=== PATIENT | female | born 1940 | race Caucasian/White ===

== ENCOUNTER 2016-06-15 09:11 | Inpatient (IN) | payer MEDICARE ==
[2016-06-15] MEDS ORDERED: Activated Charcoal/Sorbitol 25 GM/120 ML TUBE ONE (09:26)
[2016-06-15] MEDS ORDERED: Acetaminophen 325 MG TAB ONE (09:26)
[2016-06-15 09:52] LABS: #Basophils 0.1 thou/uL (0.0-0.2); #Eosinphils 0.1 thou/uL (0.0-0.7); #Lymphocytes 1.1 thou/uL (1.20-3.40); #Monocytes 0.4 thou/uL (0.11-0.59); #Neutrophils 12.2 thou/uL (1.40-6.50); %Basophils 0.6 % (0.0-1.0); %Eosinophils 0.8 % (0.0-10.0); %Monocytes 3.1 % (0.0-10.0); %Neutrophils 87.5 % (42.0-75.0); Hemoglobin 12.8 g/dL (12.0-16.0); Mean Corpuscular HGB CONC 32.5 g/dL (32.0-36.0); Mean Corpuscular Hemoglobin 30.7 pg (27.0-31.0); Mean Corpuscular Volume 94.4 fl (81.0-99.0); Mean Platelet Volume 7.5 fL (7.4-10.4); Platelet Count 201 thou/uL (130-400); Red Blood Cell (RBC) Count 4.18 mill/uL (4.20-5.40); White Blood Cell (WBC) Count 13.9 thou/uL (4.8-10.8)
[2016-06-15 10:11] LABS: ALT (SGPT) 20 U/L (0-55); AST (SGOT) 26 U/L (5-34); Albumin 3.7 g/dL (3.4-4.8); Alkaline Phosphatase 61 U/L (40-150); Anion Gap 17 mmol/L (10-20); BUN (Urea Nitrogen) 15 mg/dL (9.8-20.1); Bilirubin, Total 0.3 mg/dL (0.2-1.2); Calc. Creatinine Clearance 0 mL/min (70-130); Calcium 9.2 mg/dL (7.8-10.44); Chloride 99 mmol/L (98-107); Estimated GFR-MDRD 70; Globulin 2.6 g/dL (2.4-3.5); Glucose 108 mg/dL (83-110); Potassium 3.8 mmol/L (3.5-5.1); Protein, Total 6.3 g/dL (5.8-8.1); Sodium 139 mmol/L (136-145)
[2016-06-15 10:13] LABS: CKMB 2.9 ng/mL (0-6.6); Troponin I 0.015 ng/mL (< 0.028)
[2016-06-15 10:20] LABS: Carbon Dioxide 27 mmol/L (23-31)
[2016-06-15 10:45] LABS: Bilirubin Negative (Negative); Blood, Urine Trace (Negative); Clarity Clear (Clear); Glucose, Urine (Dipstick) Negative (Negative); Leukocyte Negative (Negative); Nitrite Negative (Negative); Protein, Urine (Dipstick) Negative (Neg-Trace); Urobilinogen 0.2 mg/dL (0.2-1.0)
[2016-06-15 10:52] LABS: Bacteria/HPF None Seen HPF (None Seen); Crystals/HPF None Seen HPF (Negative); Hyaline Casts/LPF NONE SEEN LPF (0-3 Hyaline); Other Casts/LPF None Seen LPF (0-3 Hyaline); Oval Fat Bodies/HPF None Seen HPF (None Seen); RBC/HPF 0-3 HPF (0-3); Renal Epithelial None Seen HPF (0-3); Sperm/HPF None Seen HPF (None Seen); Squamous Epithelial None Seen HPF (0-3); Transitional Epithelial NONE SEEN HPF (0-3); Trichomonas/HPF None Seen HPF (None Seen); WBC/HPF None Seen HPF (0-3); Yeast-All Forms None Seen HPF (None Seen)
[2016-06-15] MEDS ORDERED: HYDROcodone/Acetaminophen 10/325 mg Tablet ONE (11:41)
[2016-06-15] MEDS ORDERED: Ketorolac Tromethamine 30 MG/ML VIAL ONE (11:41)
--- NOTE | 2016-06-15 12:08 | CT ---
CT OF THE BRAIN WITHOUT CONTRAST: Date: 06/15/16 Comparison made with the 07/19/08 study. FINDINGS: There is motion artifact and also some artifact from bone and metal. This degrades the images. Never theless, no intracranial bleeding, mass, or gross finding of stroke was found. Small strokes could b e easily missed. The ventricular sizes are appropriate for the degree of atrophy present. IMPRESSION: Lower sensitivity study showing no definite acute findings. POS: HOME
[2016-06-15] MEDS ORDERED: Acetaminophen 325 MG TAB PO PRN (14:17)
[2016-06-15] MEDS: Sodium Chloride 0.9% 1,000 ML IV SCH ×2 (14:30→23:15)
[2016-06-15] MEDS ORDERED: MORPHINE SULFATE 30 MG PO PRN (14:37)
[2016-06-15] MEDS ORDERED: LIDOCAINE TOP PRN (14:37)
[2016-06-15] MEDS ORDERED: Calcium Carbonate 500 MG ChewTAB PO PRN (14:37)
[2016-06-15] MEDS ORDERED: Polyethylene Glycol 3350 17 GM Packet PO PRN (14:40)
[2016-06-15] MEDS ORDERED: LIDOCAINE 5% TOP SCH (15:00)
[2016-06-15] MEDS: Albuterol Sulfate 2.5 mg/3 ml Neb NEB SCH ×3 (16:14→23:15)
[2016-06-15] MEDS: HYDROcodone/Acetaminophen 10/325 mg Tablet PO PRN (18:45)
[2016-06-15] MEDS: Enoxaparin Sodium 30 MG/0.3 ML SYRINGE SC SCH (18:52)
--- NOTE | 2016-06-15 20:15 | RAD ---
PORTABLE CHEST: 06/15/16 An AP portable film at 0955 is compared with a 11/29/14 study. The patient is turned to the side whic h is going to accentuate the lung markings on one side versus the other. The heart size is normal. There is no congestive change or pleural effusion. It is hazier in the lef t lung than the right, particularly the lower lobe, though to some extent this is due to the patient being rotated. Nevertheless, I cannot exclude an early infiltrate here. A convexity seen on the rig ht side of the thoracic spine near the diaphragm is almost certainly her known hiatal hernia. IMPRESSION: Rotated study suggesting some left basilar haziness. I cannot exclude an infiltrate there, but a fol lowup better centered film would be helpful. Code T POS: HOME
[2016-06-15] MEDS ORDERED: TRAZODONE HCL 150 MG PO SCH (21:00)
[2016-06-15] MEDS ORDERED: PROPYLENE GLYCOL EA EYE SCH (21:00)
[2016-06-15] MEDS ORDERED: PEG EA EYE SCH (21:00)
[2016-06-15] MEDS ORDERED: Non-Formulary Item 1 EACH (Zolpidem Tartrate [Zolpidem Tartrate] 10 MG) PO SCH (21:00)
[2016-06-15] MEDS ORDERED: [UNRECOGNIZED DRUG - OTHER] EA EYE SCH (21:00)
[2016-06-15] MEDS ORDERED: Polyethylene Glycol OPTH DROP 15 ML BOT EA EYE SCH (21:00)
[2016-06-15] MEDS ORDERED: LOTEPREDNOL ETABONATE EA EYE SCH (21:00)
[2016-06-15] MEDS: Zolpidem Tartrate 5 MG TAB PO SCH (21:42)
[2016-06-15] MEDS: traZODone HCl 50 MG TAB PO SCH (21:42)
[2016-06-15] MEDS: Gabapentin 300 MG CAP PO SCH (21:43)
[2016-06-15] MEDS: MORPHINE 30 MG PO SCH (21:45)
[2016-06-15] MEDS: LOTEMAX 0.5% EA EYE SCH (21:46)
--- NOTE | 2016-06-15 22:26 | HP ---
DATE OF ADMISSION: 06/15/2016 CHIEF COMPLAINT: Altered mental status and cough. HISTORY OF PRESENT ILLNESS: 76-year-old female presented to [facility] via EMS this morning secondary to altered mental state noted by her . The patient had a notable change in her behavior and was less conversational at home with a decline in her intake as well per her . She was transferred to the Emergency Department and evaluated with CT of the brain showing no definite acute findings. However, chest x-ray findings were concerning for a left-sided pneumonia. The patient denies having any weakness to her extremities or speech deficits. She does report to have a productive cough for the last several days. She did not feel to be febrile at home, but upon evaluation in the Emergency Department, she had a temperature of 103. She has not taken any medications at home up to this point for her symptoms. Her primary care provider is Dr. Marion, who she has seen as recently as a few weeks ago. She states she did get a flu and pneumonia shot this last fall; her reports that she has had both pneumonia shots. The patient has felt that her intake was at her baseline; however, this differs from what her stated. As far as her output she has a history of constipation with the last bowel movement a couple of days ago; she normally takes milk of Magnesia for this. She normally ambulates with the assistance of a cane. The patient was provided intravenous fluids in the emergency department and started on Levaquin IV and her mental status has continued to improve over this time up to her admission to the floor. She will be admitted to continue antibiotics for pneumonia, IV hydration, and following of her mental status. PAST MEDICAL HISTORY: Includes hypertension, supraventricular tachycardia, insomnia, gastroesophageal reflux disease, osteoarthritis, chronic neck and back pain, depression, and hyperlipidemia. PAST SURGICAL HISTORY: Hysterectomy, five back surgeries with the most recent being cervical surgery, right rotator cuff repair, bilateral cataract repair, bilateral knee replacement, carpal tunnel surgery, and tonsillectomy. SOCIAL HISTORY: She currently lives at home with her . Denies tobacco, alcohol, or illicit drug use. FAMILY HISTORY: Includes her father of unknown cancer, mother had a history of hypertension and stroke and has a family history of coronary artery disease. ALLERGIES: There are no known drug allergies. CURRENT MEDICATIONS: Amlodipine 2.5 mg p.o. daily, aspirin 81 mg p.o. daily, baclofen 10 mg p.o. daily, biotin 10,000 mcg p.o. daily, calcium carbonate 500 mg p.o. daily, calcium carbonate with vitamin D 1500 mg/400 units 1 tab p.o. daily, Cymbalta 60 mg p.o. daily, gabapentin 300 mg p.o. b.i.d., [place] 10/325 mg p.o. q.6 hours, hydrochlorothiazide 12.5 mg p.o. daily, topical lidocaine 5% as needed, Lotemax 0.5%, ophthalmic gel to each eye b.i.d., Milk of Magnesia 30 mL p.o. daily, Mobic 7.5 mg p.o. daily, morphine sulfate 30 mg p.o. t.i.d., multivitamin p.o. daily, Crestor 20 mg p.o. at bedtime, Ambien 10 mg p.o. at bedtime, Trazodone 150 mg p.o. at bedtime. REVIEW OF SYSTEMS: GENERAL: The patient complains of fever, denies fatigue. EAR, NOSE, AND THROAT: Denies sore throat, nasal drainage, or congestion. CARDIOVASCULAR: Denies chest pain or palpitations. RESPIRATORY: Complains of cough. Denies shortness of breath or anemia. GASTROINTESTINAL: Denies abdominal pain, nausea, vomiting or diarrhea. Does complain of constipation. GENITOURINARY: Denies dysuria. MUSCULOSKELETAL: Chronic osteoarthritic pain. DERMATOLOGIC: Denies rashes. NEUROLOGIC: Denies headache. LABORATORY DATA: The patient has a white blood cell count of 13.9 with left shift. No anemia. CMP is completely normal. Urinalysis showed no UTI. IMAGING: Chest x-ray is pending at this time as far as the official read; however, concerning for left lower lobe pneumonia. The brain CT showed low sensitivity study with no definite acute findings. PHYSICAL EXAMINATION: VITAL SIGNS: Temperature is 98.3, pulse is 84, respiratory rate is 20, blood pressure is 101/53, oxygen saturation is 97% on 2 liters. GENERAL: The patient is alert and oriented, in no acute distress. HEAD, EYES, EAR, NOSE, AND THROAT: Head is atraumatic and normocephalic. Sclerae are clear. Extraocular muscles are intact. She has dry mucous membranes. No oral lesions. NECK: Supple with no lymphadenopathy. No JVD, no carotid bruit. LUNGS: She has crackles to the left lung [place]. No wheezing or respiratory distress. She has a nasal cannula in place. CARDIOVASCULAR: Normal S1, S2. Regular rate and rhythm with 2/6 systolic murmur. ABDOMEN: Soft, nontender to palpation with bowel sounds present. No rebound or guarding. EXTREMITIES: No clubbing, cyanosis, or edema. She has osteoarthritic changes to the DIP joints of bilateral hands. NEUROLOGIC: Nonfocal. Cranial nerves II-XII are intact. Strength is equal in all extremities. SKIN: No rashes. She has well- healed vertical scars over bilateral anterior knees. ASSESSMENT AND PLAN: 1. Community-acquired pneumonia. The patient has been started on Levaquin empirically, which will be continued. She has been placed on supplemental oxygen to keep her saturations greater than 92%. We will plan to wean this as tolerated. We will start incentive spirometer. We will follow up chest x-ray to assess for improvement. 2. Altered mental status appears improved/resolved by exam as the patient is fully alert and oriented. Brain CT was reassuring. We will continue to provide intravenous fluids over the interim in regards to this. 3. Leukocytosis with left shift. We will follow up blood cultures. Obtain CBC in the morning. 4. Chronic neck and back pain. We will resume home pain medications. 5. Constipation, likely secondary to pain medications. We will resume home milk of Magnesia and add MiraLax p.r.n. 6. Depression. We will continue home medications. 7. Hypertension. Blood pressure is on the low side, presumably due to dehydration. We will hold home medications for now and provide intravenous fluids and follow up vital signs. 8. Insomnia. We will continue home medications. 9. Prophylaxis. We will provide Lovenox and a proton pump inhibitor. MTDD
[2016-06-16] MEDS: Albuterol Sulfate 2.5 mg/3 ml Neb NEB SCH ×6 (03:35→23:54)
[2016-06-16 05:28] LABS: #Basophils 0.1 thou/uL (0.0-0.2); #Lymphocytes 1.8 thou/uL (1.20-3.40); #Monocytes 0.5 thou/uL (0.11-0.59); #Neutrophils 9.9 thou/uL (1.40-6.50); %Basophils 0.6 % (0.0-1.0); %Eosinophils 0.3 % (0.0-10.0); %Lymphocytes 14.4 % (21.0-51.0); %Monocytes 3.9 % (0.0-10.0); %Neutrophils 80.8 % (42.0-75.0); Hemoglobin 11.9 g/dL (12.0-16.0); Mean Corpuscular HGB CONC 32.7 g/dL (32.0-36.0); Mean Corpuscular Hemoglobin 30.8 pg (27.0-31.0); Mean Corpuscular Volume 94.1 fl (81.0-99.0); Mean Platelet Volume 7.7 fL (7.4-10.4); Platelet Count 187 thou/uL (130-400); RBC Distribution Width 12.2 % (11.5-14.5); Red Blood Cell (RBC) Count 3.86 mill/uL (4.20-5.40); White Blood Cell (WBC) Count 12.2 thou/uL (4.8-10.8)
[2016-06-16 05:42] LABS: ALT (SGPT) 18 U/L (0-55); AST (SGOT) 20 U/L (5-34); Albumin 3.5 g/dL (3.4-4.8); Alkaline Phosphatase 66 U/L (40-150); Anion Gap 14 mmol/L (10-20); BUN (Urea Nitrogen) 8 mg/dL (9.8-20.1); Bilirubin, Total 0.2 mg/dL (0.2-1.2); Calc. Creatinine Clearance 76 mL/min (70-130); Calcium 8.9 mg/dL (7.8-10.44); Carbon Dioxide 24 mmol/L (23-31); Chloride 109 mmol/L (98-107); Estimated GFR-MDRD 78; Globulin 2.5 g/dL (2.4-3.5); Glucose 152 mg/dL (83-110); Potassium 3.6 mmol/L (3.5-5.1); Sodium 143 mmol/L (136-145)
[2016-06-16] MEDS: HYDROcodone/Acetaminophen 10/325 mg Tablet PO PRN ×3 (08:29→19:36)
[2016-06-16] MEDS: Aspirin 81 mg Enteric Coated Tablet PO SCH (08:31)
[2016-06-16] MEDS: Baclofen 10 MG TAB PO SCH (08:31)
[2016-06-16] MEDS: Calcium Carbonate + Vit D 1 TAB PO SCH (08:32)
[2016-06-16] MEDS: Gabapentin 300 MG CAP PO SCH ×2 (08:33→21:33)
[2016-06-16] MEDS: Meloxicam 7.5 MG TAB PO SCH (08:33)
[2016-06-16] MEDS: Multivitamin W/ Minerals 1 TAB PO SCH (08:34)
[2016-06-16] MEDS: SYSTANE OPTH EA EYE SCH ×2 (08:36→21:32)
[2016-06-16] MEDS: LOTEMAX 0.5% EA EYE SCH ×2 (08:37→21:32)
[2016-06-16] MEDS: MORPHINE 30 MG PO SCH ×3 (08:37→21:31)
[2016-06-16] MEDS ORDERED: Milk Of Magnesia 30 ML UDCUP PO SCH ×2 (09:00→21:00)
[2016-06-16] MEDS ORDERED: DULOXETINE HCL 60 MG PO SCH (09:00)
[2016-06-16] MEDS ORDERED: Non-Formulary Item 1 EACH (Vit C/Vit E/Lutein/Min/Omega-3 [Ocuvite Softgel] 1 CAP) PO SCH (09:00)
[2016-06-16] MEDS ORDERED: [UNRECOGNIZED DRUG - OTHER] PO SCH (09:00)
[2016-06-16] MEDS ORDERED: Biotin [Biotin] 10,000 MCG PO SCH (09:00)
[2016-06-16] MEDS ORDERED: MULTIVITS MIN PO SCH (09:00)
[2016-06-16] MEDS ORDERED: Non-Formulary Item 1 EACH (Biotin [Biotin] 10,000 MCG) PO SCH (09:00)
[2016-06-16] MEDS ORDERED: LUTEIN PO SCH (09:00)
[2016-06-16] MEDS ORDERED: Non-Formulary Item 1 EACH (Rosuvastatin Calcium [Crestor] 20 MG) PO SCH (09:00)
[2016-06-16] MEDS ORDERED: IRON PO SCH (09:00)
--- NOTE | 2016-06-16 11:24 | RAD ---
CHEST 2 VIEWS: Date: 06/16/16 Comparison is made with the 06/15/16 study. Again, there is some mild increase in lung markings, but especially in the left lower lobe posterior ly. The findings suggest a minimal pneumonia here. The right lung is relatively clear of focal findi ngs. There are no effusions. The lungs are mildly hyperexpanded. The patient's known hiatal hernia i s seen. There are no congestive changes or interval increase in heart size. IMPRESSION: Findings suggestive of a minimal left lower lobe infiltrate. POS: HOME
[2016-06-16] MEDS: Vit A,C & E/Lutein/Minerals Tablet PO SCH (11:46)
[2016-06-16] MEDS: Enoxaparin Sodium 30 MG/0.3 ML SYRINGE SC SCH (19:37)
[2016-06-16] MEDS: traZODone HCl 50 MG TAB PO SCH (21:33)
[2016-06-16] MEDS: Zolpidem Tartrate 5 MG TAB PO SCH (21:33)
[2016-06-17] MEDS: Albuterol Sulfate 2.5 mg/3 ml Neb NEB SCH ×4 (03:58→15:06)
[2016-06-17] MEDS: HYDROcodone/Acetaminophen 10/325 mg Tablet PO PRN ×2 (04:03→10:07)
[2016-06-17 05:35] LABS: #Basophils 0.1 thou/uL (0.0-0.2); #Eosinphils 0.1 thou/uL (0.0-0.7); #Monocytes 0.5 thou/uL (0.11-0.59); %Basophils 1.1 % (0.0-1.0); %Lymphocytes 22.8 % (21.0-51.0); %Monocytes 6.1 % (0.0-10.0); Hemoglobin 11.1 g/dL (12.0-16.0); Mean Corpuscular HGB CONC 32.8 g/dL (32.0-36.0); Mean Corpuscular Volume 94.5 fl (81.0-99.0); Mean Platelet Volume 7.2 fL (7.4-10.4); Platelet Count 179 thou/uL (130-400); RBC Distribution Width 12.8 % (11.5-14.5); Red Blood Cell (RBC) Count 3.57 mill/uL (4.20-5.40); White Blood Cell (WBC) Count 8.6 thou/uL (4.8-10.8)
[2016-06-17 05:38] LABS: Anion Gap 14 mmol/L (10-20); BUN (Urea Nitrogen) 6 mg/dL (9.8-20.1); Calc. Creatinine Clearance 76 mL/min (70-130); Calcium 8.9 mg/dL (7.8-10.44); Carbon Dioxide 24 mmol/L (23-31); Chloride 107 mmol/L (98-107); Estimated GFR-MDRD 78; Glucose 123 mg/dL (83-110); Sodium 141 mmol/L (136-145)
[2016-06-17 06:30] VITALS: BP 135/61; TEMP 98.4; BMI 24.7
--- NOTE | 2016-06-17 07:17 | RAD ---
CHEST 2 VIEWS: Date: 06/17/16 Comparison with the 06/16/16 study shows a little more streaking in the left lower lobe than yesterd ay. The right lung remains relatively clear. The cardiac size is unchanged. There are no large effus ions or congestive changes. IMPRESSION: Increasing left lower lobe infiltrate. POS: HOME
[2016-06-17] MEDS: MORPHINE 30 MG PO SCH ×2 (08:38→15:04)
[2016-06-17] MEDS: LOTEMAX 0.5% EA EYE SCH (08:38)
[2016-06-17] MEDS: SYSTANE OPTH EA EYE SCH (08:38)
[2016-06-17] MEDS: Multivitamin W/ Minerals 1 TAB PO SCH (08:40)
[2016-06-17] MEDS: Gabapentin 300 MG CAP PO SCH (08:40)
[2016-06-17] MEDS: Baclofen 10 MG TAB PO SCH (08:41)
[2016-06-17] MEDS: Calcium Carbonate + Vit D 1 TAB PO SCH (08:41)
[2016-06-17] MEDS: Aspirin 81 mg Enteric Coated Tablet PO SCH (08:41)
[2016-06-17] MEDS: Meloxicam 7.5 MG TAB PO SCH (08:41)
[2016-06-17] MEDS: Vit A,C & E/Lutein/Minerals Tablet PO SCH (08:50)
[2016-06-17] MEDS ORDERED: Proctozone-HC 2.5% Cream 30 GM TUBE TOP SCH (09:00)
[2016-06-17] MEDS ORDERED: Biotin [Biotin] 10,000 MCG PO SCH (09:00)
[2016-06-17] MEDS ORDERED: Azithromycin 250 MG TAB PO SCH ×2 (09:00)
--- NOTE | 2016-06-18 03:54 | DIS ---
DATE OF ADMISSION: 06/15/2016 DATE OF DISCHARGE: 06/17/2016 ADMISSION DIAGNOSES: Community-acquired pneumonia, altered mental status, dehydration and leukocytosis. SECONDARY DIAGNOSES: Include chronic back pain, chronic neck pain, constipation , depression, hypertension, hemorrhoids, supraventricular tachycardia, insomnia , gastroesophageal reflux disease, osteoarthritis, and hyperlipidemia. PROCEDURES: Brain CT on 06/15/2016 showing lower sensitivity study with no definite acute findings. Chest x-ray on 06/15/2016 showed rotated study suggesting some left basilar haziness, I cannot exclude an infiltrate there, but a followup better sensored film would be helpful. On 06/16/2016 chest x-ray , showed findings suggestive of minimal left lower lobe infiltrate. On 2016 chest x-ray, showed increasing left lower lobe infiltrate. HOSPITAL COURSE: A 76-year-old female, who presented to [facility] via EMS secondary to altered mental state at home. Upon workup in the emergency department, patient was found to be dehydrated and have community- acquired pneumonia with noted leukocytosis with left shift. She was empirically started on IV Levaquin and provided intravenous fluids. She was also initially placed on supplemental oxygen, which she was able to effectively wean during her stay. Her leukocytosis trended down to normal level over her short stay and she remained afebrile throughout her stay on the floor; she was notably febrile in the ER setting. Her mental status quickly returned to her baseline with hydration and antibiotic therapy; she notably had no evidence of a urinary tract infection. Patient's blood cultures showed no growth beyond 48 hours. The patient progressed well during her stay and has transitioned to p.o. antibiotics and is appropriate for discharge home at this time where she lives with her . She has transitioned to p.o. Levaquin and was added a Z -JUAN CARLOS secondary to today's chest x-ray reading showing an increasing left lower lobe infiltrate, although vitals and lab work have all normalized. The patient' s blood pressure medications of amlodipine and hydrochlorothiazide were initially held due to borderline hypotension involving dehydrated state. During her stay, the amlodipine was restarted and the hydrochlorothiazide will be continued upon discharge. Patient feels much improved and is amenable to discharge to complete her po antibiotics at home; would recommend f/u CXR as an outpatient. DISPOSITION: Patient will return home today with her and may follow up with her primary care physician, Dr. Marion next week. DISCHARGE MEDICATIONS: Include new medications Levaquin 500 mg p.o. daily x6 days, azithromycin 250 mg p.o. daily x4 days. She will resume her other usual medications which include amlodipine 2.5 mg p.o. daily, aspirin 81 mg p.o. daily , baclofen 10 mg p.o. daily, biotin 10,000 mcg p.o. daily, calcium carbonate 500 mg p.o. daily, calcium carbonate with vitamin D 1500 mg/400 units 1 tab p.o. daily, Cymbalta 60 mg p.o. daily, gabapentin 300 mg p.o. b.i.d., [place] 10/ 325 mg p.o. q.6 hours, hydrochlorothiazide 12.5 mg p.o. daily, topical lidocaine 5% as needed, Lotemax 0.5% ophthalmic gel to each eye b.i.d., Milk of Magnesia 30 mL p.o. daily, Mobic 7.5 mg p.o. daily, morphine sulfate 30 mg p.o. t.i.d., multivitamin p.o. daily, Crestor 20 mg p.o. at bedtime, Ambien 10 mg p.o. at bedtime, trazodone 150 mg p.o. at bedtime. MTDD
[2016-06-18] MEDS ORDERED: Azithromycin 250 MG TAB PO SCH (09:00)
== END 2016-06-17 15:55 | disposition home or self-care (01) | DRG 194 ==
LOC: BURERS 09:11 → BURMED 11:33
PROVIDERS: ADMIT Family Medicine; ATTEND Family Medicine
DX: J18.9 Pneumonia, unspecified organism (principal); I47.1 Supraventricular tachycardia; E86.0 Dehydration; F32.9 Major depressive disorder, single episode, unspecified; I10 Essential (primary) hypertension; G47.00 Insomnia, unspecified; K59.03 Drug induced constipation; T50.995A Adverse effect of other drugs, medicaments and biological substances, initial encounter; K21.9 Gastro-esophageal reflux disease without esophagitis; M19.90 Unspecified osteoarthritis, unspecified site; E78.5 Hyperlipidemia, unspecified; K64.9 Unspecified hemorrhoids; M54.2 Cervicalgia; M54.9 Dorsalgia, unspecified
CPT/HCPCS: 36415; 51701; 70450; 71010; 71020; 80048; 80053; 81003; 81015; 82553; 83880; 84134; 84484; 85025; 87040; 93005; 94640; 94760; 96365; 96375; A4216; J1650; J1885; J1956; J7611; J7620

== ENCOUNTER 2016-07-30 15:43 | Outpatient (CLI) | payer MEDICARE ==
--- NOTE | 2016-07-30 18:48 | RAD ---
RIGHT ANKLE 3 VIEWS: Date: 07/30/16 Some mild soft tissue swelling is present. No acute fracture seen. There is ossification at the inse rtion of the Achilles tendon. A slight bony irregularity at the base of the fifth metatarsal is prob ably from old trauma. IMPRESSION: No acute bony findings. POS: HOME
== END 2016-07-30 15:44 | disposition home or self-care (01) ==
LOC: BURRAD 15:43
PROVIDERS: ATTEND Family Medicine
DX: M25.571 Pain in right ankle and joints of right foot (principal)

== ENCOUNTER 2016-08-14 13:21 | Outpatient (CLI) | payer MEDICARE ==
--- NOTE | 2016-08-14 18:42 | RAD ---
FACIAL BONES THREE VIEWS 08/14/16 The paranasal sinuses are clear. There was no sign of opacification or air fluid level. The orbital rims and zygomatic arches appear intact. No acute fractures were demonstrated. There may be a little deviation of the nasal septum towards the right. The lateral view showed no gross nasal fracture. IMPRESSION: No acute finding. POS: HOME
== END 2016-08-14 13:22 | disposition home or self-care (01) ==
LOC: BURRAD 13:21
PROVIDERS: ATTEND Family Medicine
DX: S09.93XA Unspecified injury of face, initial encounter (principal)
CPT/HCPCS: 70150

== ENCOUNTER 2016-09-25 10:13 | Outpatient (CLI) | payer MEDICARE ==
[2016-09-25 19:01] LABS: Folate (Folic Acid) 35.7 ng/mL (7.0-31.4)
[2016-09-27 09:18] LABS: Antinuclear AB Negative (Negative)
== END 2016-09-25 10:14 | disposition home or self-care (01) ==
LOC: BURLAB 10:13
PROVIDERS: ATTEND Psychiatry & Neurology Neurology
DX: E78.00 Pure hypercholesterolemia, unspecified (principal); E53.1 Pyridoxine deficiency; E53.8 Deficiency of other specified B group vitamins; G62.9 Polyneuropathy, unspecified
CPT/HCPCS: 36415; 82390; 82607; 82746; 83921; 84165; 84443; 85652; 86038; 86140; 86334

== ENCOUNTER 2016-09-30 07:13 | Emergency (ER) | payer MEDICARE ==
[2016-09-30] MEDS ORDERED: Ondansetron HCl/PF 4 MG/2 ML Vial ONE (07:53)
[2016-09-30] MEDS ORDERED: Morphine Sulfate 2 MG/ML SYRINGE ONE (07:53)
[2016-09-30 08:00] LABS: ALT (SGPT) 25 U/L (8-55); AST (SGOT) 37 U/L (5-34); Albumin 3.8 g/dL (3.4-4.8); Alkaline Phosphatase 74 U/L (40-150); Anion Gap 13 mmol/L (10-20); BUN (Urea Nitrogen) 9 mg/dL (9.8-20.1); Bilirubin, Total 0.4 mg/dL (0.2-1.2); Calc. Creatinine Clearance 0 mL/min (70-130); Calcium 9.1 mg/dL (7.8-10.44); Carbon Dioxide 28 mmol/L (23-31); Chloride 100 mmol/L (98-107); Estimated GFR-MDRD 71; Glucose 106 mg/dL (83-110); Lipase 10 U/L (8-78); Potassium 4.2 mmol/L (3.5-5.1); Protein, Total 6.8 g/dL (6.0-8.3); Sodium 137 mmol/L (136-145)
[2016-09-30 08:04] LABS: #Basophils 0.1 thou/uL (0.0-0.2); #Eosinphils 0.2 thou/uL (0.0-0.7); #Lymphocytes 1.9 thou/uL (1.20-3.40); #Monocytes 0.4 thou/uL (0.11-0.59); #Neutrophils 4.6 thou/uL (1.40-6.50); %Basophils 1.5 % (0.0-1.0); %Eosinophils 2.3 % (0.0-10.0); %Lymphocytes 26.9 % (21.0-51.0); %Monocytes 5.1 % (0.0-10.0); %Neutrophils 64.2 % (42.0-75.0); Hemoglobin 12.6 g/dL (12.0-16.0); Mean Corpuscular HGB CONC 32.7 g/dL (32.0-36.0); Mean Corpuscular Hemoglobin 29.5 pg (27.0-31.0); Mean Corpuscular Volume 90.1 fl (81.0-99.0); Mean Platelet Volume 7.1 fL (7.4-10.4); Platelet Count 220 thou/uL (130-400); RBC Distribution Width 13.4 % (11.5-14.5); Red Blood Cell (RBC) Count 4.26 mill/uL (4.20-5.40); White Blood Cell (WBC) Count 7.1 thou/uL (4.8-10.8)
[2016-09-30 08:41] LABS: Bilirubin Negative (Negative); Blood, Urine Negative (Negative); Clarity Clear (Clear); Glucose, Urine (Dipstick) Negative (Negative); Leukocyte Negative (Negative); Nitrite Negative (Negative); Protein, Urine (Dipstick) Negative (Neg-Trace); Specific Gravity, Urine 1.015 (1.005-1.030); Urobilinogen 0.2 mg/dL (0.2-1.0); pH, Urine 8.5 (5.0-9.0)
[2016-09-30] MEDS ORDERED: Iopamidol 370 76% 100 ML VIAL ONE (09:00)
[2016-09-30] MEDS ORDERED: Iopamidol 370 76% 50 ML VIAL FS ONE (09:00)
[2016-09-30] MEDS ORDERED: Magnesium Citrate 300 ML BOT ONE (10:15)
--- NOTE | 2016-09-30 21:47 | CT ---
CT ABDOMEN AND PELVIS: Date: 09/30/[address] of the abdomen and pelvis was done after giving both oral and IV contrast. Comparison was made with a CT angio of the chest from 2010 that showed a few slices into the upper abdomen. After o btaining axial slices, coronal and sagittal reconstructions were done. FINDINGS: The lung bases are clear, except for a little basilar atelectasis. A large hiatal hernia is present centrally, and is larger than it was in 2010. The liver contains multiple cystic lesions scattered throughout it, the largest measuring up to abou t 2.4 cm in size. Numerous small cysts were present in the visible portions of the liver in 2010, bu t the size and number have increased in the interval. The patient's gallbladder is large. No wall thickening or stones were appreciated. The common bile d uct is quite large, measuring about 1.4 cm in diameter. The reason for the dilation is not apparent. While it is difficult to see the pancreatic head well, there is no hint of the mass in this locatio n to account for this. I believe I can follow the duct all the way to the duodenum. The spleen and pancreas were unremarkable. The kidneys contain no solid mass or hydronephrosis. Ther e are a few small nonobstructing calculi in each kidney. The aorta is calcified, but not dilated. There is a massive amount of stool in the colon which causes moderate dilation of it. Some loops are up to 4+ centimeters in size. Nevertheless, I do not believe she is frankly obstructed. No free air or free fluid seen. No inflammatory changes seen around bowel, but it would be difficult to see all but the most extreme examples of such. CT of the pelvis showed no pelvic masses or free fluid. On some segments of the sigmoid colon, one w ould almost wonder about a little gas in its mendez, but the mendez are not thick and this is probably just gas trapped in crypts. There is no stranding around the mendez and no thickening of the mendez t hemselves. I see no evidence of gas in the portal venous system. IMPRESSION: 1. Severe constipation. 2. Large hiatal hernia, larger than in 2010. 3. Multiple hepatic cysts, more numerous and larger than in 2010. 4. Large gallbladder. Enlarged common bile duct, cause not apparent. 5. Small nonobstructing bilateral renal calculi. Findings discussed with Dr. Stevenson at 1005 hours on 09/30/16. GI follow-up, particularly of the bilia ry findings, is needed. CODE CR. POS: HOME
== END 2016-09-30 11:27 | disposition home or self-care (01) ==
LOC: BURERS 07:13
DX: K59.00 Constipation, unspecified (principal); K44.9 Diaphragmatic hernia without obstruction or gangrene; K82.8 Other specified diseases of gallbladder; I10 Essential (primary) hypertension; F32.9 Major depressive disorder, single episode, unspecified; Z79.891 Long term (current) use of opiate analgesic; Z79.82 Long term (current) use of aspirin; Z79.899 Other long term (current) drug therapy
CPT/HCPCS: 36415; 74177; 80053; 81003; 83690; 85025; 96361; 96374; 96375; J2270; J2405; Q0162

== ENCOUNTER 2016-09-30 18:16 | Emergency (ER) | payer MEDICARE ==
[2016-09-30] MEDS ORDERED: Ondansetron ODT 4 MG TAB ONE (18:41)
[2016-09-30] MEDS ORDERED: Morphine Sulfate 2 MG/ML SYRINGE ONE (19:22)
[2016-09-30] MEDS ORDERED: Ondansetron HCl/PF 4 MG/2 ML Vial ONE (23:10)
== END 2016-09-30 23:47 | disposition short-term general hospital (02) ==
LOC: BURERS 18:16
DX: K59.00 Constipation, unspecified (principal); I10 Essential (primary) hypertension; F32.9 Major depressive disorder, single episode, unspecified; Z79.82 Long term (current) use of aspirin; Z79.899 Other long term (current) drug therapy
CPT/HCPCS: 96374; 96375; J2270; J2405; Q0162

== ENCOUNTER 2016-11-06 18:36 | Emergency (ER) | payer MEDICARE ==
--- NOTE | 2016-11-06 19:40 | CT ---
CT BRAIN WITHOUT CONTRAST 11/06/16 HISTORY: Confused. Hands and feet are shaking. COMPARISON: CT brain 06/15/16. FINDINGS: No acute territorial infarct or hemorrhage. No midline shift or mass effect. Ventricular size and ex tra-axial CSF spaces are normal for age and the amount of atrophy which is mild/moderate. Calvarium is intact. The paranasal sinuses and mastoids are clear. Orbits are unremarkable. IMPRESSION: No acute intracranial abnormality. POS: [facility]
[2016-11-06 19:46] LABS: #Basophils 0.1 thou/uL (0.0-0.2); #Eosinphils 0.1 thou/uL (0.0-0.7); #Lymphocytes 1.3 thou/uL (1.20-3.40); #Monocytes 0.4 thou/uL (0.11-0.59); #Neutrophils 9.2 thou/uL (1.40-6.50); %Basophils 0.7 % (0.0-1.0); %Eosinophils 0.7 % (0.0-10.0); %Lymphocytes 11.9 % (21.0-51.0); %Monocytes 3.8 % (0.0-10.0); %Neutrophils 82.9 % (42.0-75.0); Hemoglobin 13.6 g/dL (12.0-16.0); Mean Corpuscular HGB CONC 32.5 g/dL (32.0-36.0); Mean Corpuscular Hemoglobin 30.1 pg (27.0-31.0); Mean Corpuscular Volume 92.5 fl (81.0-99.0); Mean Platelet Volume 7.9 fL (7.4-10.4); Platelet Count 174 thou/uL (130-400); Red Blood Cell (RBC) Count 4.52 mill/uL (4.20-5.40); White Blood Cell (WBC) Count 11.1 thou/uL (4.8-10.8)
[2016-11-06 19:52] LABS: INR-International Normal Ratio 1.1; Prothrombin Time 14.6 SEC (12.0-14.7)
[2016-11-06 20:02] LABS: ALT (SGPT) 16 U/L (8-55); AST (SGOT) 31 U/L (5-34); Albumin 4.1 g/dL (3.4-4.8); Alkaline Phosphatase 88 U/L (40-150); Anion Gap 11 mmol/L (10-20); BUN (Urea Nitrogen) 12 mg/dL (9.8-20.1); Bilirubin, Total 0.5 mg/dL (0.2-1.2); Calc. Creatinine Clearance 0 mL/min (70-130); Calcium 9.4 mg/dL (7.8-10.44); Carbon Dioxide 32 mmol/L (23-31); Chloride 102 mmol/L (98-107); Estimated GFR-MDRD 72; Globulin 2.7 g/dL (2.4-3.5); Glucose 134 mg/dL (83-110); Potassium 4.1 mmol/L (3.5-5.1); Protein, Total 6.8 g/dL (6.0-8.3); Sodium 141 mmol/L (136-145)
[2016-11-06 20:05] LABS: Troponin I 0.012 ng/mL (< 0.028)
[2016-11-06 20:20] LABS: CKMB 16.2 ng/mL (0-6.6)
[2016-11-06 21:27] LABS: Bilirubin Negative (Negative); Blood, Urine Negative (Negative); Clarity Clear (Clear); Glucose, Urine (Dipstick) Negative (Negative); Leukocyte Negative (Negative); Nitrite Negative (Negative); Protein, Urine (Dipstick) Negative (Neg-Trace); Specific Gravity, Urine 1.015 (1.005-1.030); Urobilinogen 0.2 mg/dL (0.2-1.0)
--- NOTE | 2016-11-06 21:39 | RAD ---
PORTABLE CHEST 11/06/16 AP portable film at 1918 is compared with a 06/17/16 study. The heart size is normal and unchanged. There is no vascular congestion, edema, or pleural effusion. A double density seen behind the heart centrally is consistent with the patient's known hiatal josafat ia. IMPRESSION: No acute thoracic finding. POS: HOME
[2016-11-06 22:00] LABS: Troponin I Less than 0.010 ng/mL (< 0.028)
[2016-11-06 22:06] LABS: CKMB 16.2 ng/mL (0-6.6)
[2016-11-06] MEDS ORDERED: diphenhydrAMINE HCl 25 MG CAP ONE (22:19)
== END 2016-11-06 22:27 | disposition home or self-care (01) ==
LOC: BURERS 18:36
DX: T40.2X1A Poisoning by other opioids, accidental (unintentional), initial encounter (principal); E78.5 Hyperlipidemia, unspecified; F32.9 Major depressive disorder, single episode, unspecified; I10 Essential (primary) hypertension; Z79.82 Long term (current) use of aspirin; Z79.899 Other long term (current) drug therapy; Z79.891 Long term (current) use of opiate analgesic; Z79.2 Long term (current) use of antibiotics
CPT/HCPCS: 36415; 70450; 71010; 80053; 81003; 82553; 84443; 84484; 85025; 85610; 87040; 93005; 96360; A4353

== ENCOUNTER 2019-06-28 11:37 | Emergency (ER) | payer MEDICARE, OTHER ==
[2019-06-28 12:39] LABS: #Lymphocytes 0.6 thou/uL (1.20-3.40); #Monocytes 0.4 thou/uL (0.11-0.59); #Neutrophils 11.4 thou/uL (1.40-6.50); %Basophils 0.4 % (0.0-1.0); %Eosinophils 0.1 % (0.0-10.0); %Lymphocytes 4.7 % (21.0-51.0); %Monocytes 3.2 % (0.0-10.0); %Neutrophils 91.7 % (42.0-75.0); Hemoglobin 12.8 g/dL (12.0-16.0); Mean Corpuscular HGB CONC 31.9 g/dL (32.0-36.0); Mean Corpuscular Hemoglobin 29.4 pg (27.0-31.0); Mean Corpuscular Volume 92.2 fL (78.0-98.0); Mean Platelet Volume 9.1 fL (7.4-10.4); Platelet Count 154 thou/uL (130-400); RBC Distribution Width 12.7 % (11.5-14.5); Red Blood Cell (RBC) Count 4.35 mill/uL (4.20-5.40); White Blood Cell (WBC) Count 12.4 thou/uL (4.8-10.8)
[2019-06-28 12:52] LABS: ALT (SGPT) 21 U/L (8-55); AST (SGOT) 35 U/L (5-34); Alkaline Phosphatase 94 U/L (40-110); Anion Gap 16 mmol/L (10-20); BUN (Urea Nitrogen) 18 mg/dL (9.8-20.1); Bilirubin, Total 0.6 mg/dL (0.2-1.2); Calc. Creatinine Clearance 0 mL/min (70-130); Calcium 9.3 mg/dL (7.8-10.44); Carbon Dioxide 28 mmol/L (23-31); Chloride 100 mmol/L (98-107); Estimated GFR-MDRD 65; Globulin 2.6 g/dL (2.4-3.5); Glucose 134 mg/dL (83-110); Potassium 3.6 mmol/L (3.5-5.1); Protein, Total 6.6 g/dL (6.0-8.3); Sodium 140 mmol/L (136-145)
--- NOTE | 2019-06-28 13:30 | RAD ---
PORTABLE CHEST: Date: 06/28/2019 An AP portable film at 1230 hours is compared with the 09/29/2017 study. The heart is unchanged in size. There are some patchy infiltrates in the left lung, more central than peripheral. No focal infiltrate is seen in the right lung, though there may be some minor diffuse in terstitial prominence. No effusions are present. No mediastinal abnormality seen. IMPRESSION: Patchy infiltrative changes, more in the left lung than the right, more central than peripheral. Give n the unilateral nature of the findings, infection is not excluded. See other studies to follow. POS: HOME
[2019-06-28 13:41] LABS: Bilirubin Negative (Negative); Blood, Urine Negative (Negative); Clarity Clear (Clear); Glucose, Urine (Dipstick) Negative (Negative); Leukocyte Negative (Negative); Nitrite Negative (Negative); Protein, Urine (Dipstick) Negative (Neg-Trace); Urobilinogen 0.2 mg/dL (Less than 2)
[2019-06-28] MEDS ORDERED: Cefepime 1 GM VIAL ONE (13:45)
--- NOTE | 2019-06-28 14:23 | CT ---
CT OF THE BRAIN WITHOUT CONTRAST: DATE: 06/28/2019. COMPARISON: Comparison is made with a 04/11/2018 study from [facility]. FINDINGS: Diffuse atrophy and mild compensatory dilatation of the ventricles is present as before. There has b een no change in that respect. No intracranial bleeding, mass, or sign of acute stroke was found. A small low-density area in the high right parietal lobe was present before and is probably an area of encephalomalacia from an old stroke. The skull appears intact with no sign of fracture. The spheno id sinus and visible paranasal sinuses are clear. IMPRESSION: Chronic changes, but no acute intracranial finding. POS: HOME
--- NOTE | 2019-06-28 14:45 | CT ---
CT OF THE CERVICAL SPINE: DATE: 06/28/2019. COMPARISON: Comparison is made with the prior study of 04/11/2018. FINDINGS: There have been few changes in the interval. No acute fracture, dislocation, or soft tissue swelling was seen. A prior anterior cervical fusion at C4-C5 is noted. There is also fusion of the C3-C4 di sk space. Disk space narrowing is present at all other cervical levels below this fusion. The c1 to dens distance is normal. Findings by level follow: C1-C2: No acute findings. C2-C3: No acute findings. C3-C4: Significant facet arthritis on the left. Mild bilateral foraminal narrowing. C4-C5: Severe facet arthritis on the left. Severe left foraminal narrowing and moderate right yoshi inal narrowing. Laminectomy present at C4. C4-C5: Mild right foraminal narrowing and moderate left foraminal narrowing. C5-C6: Moderate left foraminal narrowing and severe right foraminal narrowing. There is a right pos terior central osteophyte that narrows the right lateral recess at this level and probably impinges s lightly upon the thecal sac and nerves. C6-C7: Difficult to evaluate, but no acute findings. C7-T1: No acute findings. T1-T2: No acute findings. T2-T3: No acute finding. IMPRESSION: Extensive postoperative and degenerative changes as noted. Little change in the appearance of the sp ine compared to the 2019 study. POS: HOME
--- NOTE | 2019-06-28 14:52 | CT ---
CT ANGIO OF THE CHEST: DATE: 06/28/2019. COMPARISON: Comparison is made with a prior CT angio dated 04/26/2009. I also reviewed a CT of the abdomen and pe lvis from 09/30/2016. After a bolus of IV contrast, the pulmonary arteries were well opacified. No i nternal defects were seen to suggest emboli. The aorta is generally dilated, but there is no aneurys m or sign of dissection. No pericardial effusion was seen. No mediastinal mass or significant amoun t of adenopathy were apparent. A large hiatal hernia is present centrally. Patchy infiltrates are present in predominantly the left lung, mostly the posterior sections of the l eft upper and left lower lobes. There is also some infiltrate in the right lower lobe. A very tiny patch is suggested and is probably forming in the right upper lobe. There are no effusions. Scans into the upper abdomen did not include the adrenal gland, so they are not commented upon. Ther e are multiple cystic lesions present in the liver which has been the case in prior scans dating back to 2009. They seem to have become larger and more numerous over the interval. The largest one visu alized is in the medial left lobe and measures 2.4 cm in size. IMPRESSION: 1. No evidence of pulmonary embolism. 2. Infiltrates in mostly the left upper, left lower, and right lower lobes consistent with pneumonia . 3. Multiple cystic lesions in the liver, present for many years, but more numerous in size and numbe r. 4. Large hiatal hernia. Results of all scans discussed with Dr. Villalobos at 1427 on 06/28/2019. CODE CR POS: HOME
[2019-06-28] MEDS ORDERED: Azithromycin 500 MG VIAL ONE (14:56)
[2019-06-28] MEDS ORDERED: Sodium Chloride 0.9% 100 ML ONE (14:57)
== END 2019-06-28 15:24 | disposition short-term general hospital (02) ==
LOC: BURERS 11:37
DX: J18.9 Pneumonia, unspecified organism (principal); R09.02 Hypoxemia; E78.5 Hyperlipidemia, unspecified; I10 Essential (primary) hypertension; F32.9 Major depressive disorder, single episode, unspecified; E78.00 Pure hypercholesterolemia, unspecified; Z79.899 Other long term (current) drug therapy
CPT/HCPCS: 70450; 71045; 71275; 72125; 80053; 81003; 83605; 83880; 84484; 85025; 85379; 87040; 87086; 87804 ×2; 93005; 96365; 96375; 99285; J0456; J0692; J3490; U0002; 87635; L0120

== ENCOUNTER 2020-10-20 12:35 | Emergency (ER) | payer MEDICARE, OTHER | END 2020-10-20 13:20 | disposition home or self-care (01) | LOC: BURERS 12:35 | DX: S00.93XA Contusion of unspecified part of head, initial encounter (principal); W01.10XA Fall on same level from slipping, tripping and stumbling with subsequent striking against unspecified object, initial encounter; Z79.899 Other long term (current) drug therapy; Z79.82 Long term (current) use of aspirin; E78.5 Hyperlipidemia, unspecified; E78.00 Pure hypercholesterolemia, unspecified; I10 Essential (primary) hypertension; M19.90 Unspecified osteoarthritis, unspecified site; E78.1 Pure hyperglyceridemia | CPT/HCPCS: 70450 ==

== ENCOUNTER 2020-11-16 15:05 | Emergency (ER) | payer MEDICARE ==
[2020-11-16 15:53] LABS: #Basophils 0.1 thou/uL (0.0-0.2); #Eosinphils 0.3 thou/uL (0.0-0.7); #Lymphocytes 1.5 thou/uL (1.20-3.40); #Monocytes 0.4 thou/uL (0.11-0.59); #Neutrophils 5.7 thou/uL (1.40-6.50); %Basophils 1.1 % (0.0-1.0); %Eosinophils 3.1 % (0.0-10.0); %Lymphocytes 19.1 % (21.0-51.0); %Neutrophils 71.7 % (42.0-75.0); Hemoglobin 13.2 g/dL (12.0-16.0); Mean Corpuscular HGB CONC 31.3 g/dL (32.0-36.0); Mean Corpuscular Hemoglobin 29.3 pg (27.0-31.0); Mean Corpuscular Volume 93.6 fL (78.0-98.0); Mean Platelet Volume 8.4 fL (7.4-10.4); Platelet Count 159 thou/uL (130-400); RBC Distribution Width 12.7 % (11.5-14.5); Red Blood Cell (RBC) Count 4.49 mill/uL (4.20-5.40)
[2020-11-16 16:01] LABS: INR-International Normal Ratio 1.1; Prothrombin Time 13.8 sec (12.0-14.7)
[2020-11-16 16:10] LABS: ALT (SGPT) 37 U/L (8-55); AST (SGOT) 42 U/L (5-34); Albumin 4.1 g/dL (3.4-4.8); Alkaline Phosphatase 92 U/L (40-110); Anion Gap 13 mmol/L (10-20); BUN (Urea Nitrogen) 13 mg/dL (9.8-20.1); Bilirubin, Total 0.2 mg/dL (0.2-1.2); Calc. Creatinine Clearance 0 mL/min (70-130); Calcium 9.2 mg/dL (7.8-10.44); Carbon Dioxide 31 mmol/L (23-31); Chloride 98 mmol/L (98-107); Globulin 2.5 g/dL (2.4-3.5); Glucose 110 mg/dL (83-110); Potassium 4.1 mmol/L (3.5-5.1); Protein, Total 6.6 g/dL (5.8-8.1); Sodium 138 mmol/L (136-145)
[2020-11-16] MEDS ORDERED: Morphine 4 MG/ML VIAL ONE ×2 (17:41→18:24)
[2020-11-16] MEDS ORDERED: Morphine 2 MG/ML VIAL ONE (18:24)
[2020-11-16 18:29] LABS: SARS-CoV-2 NAA Rapid Test Not Detected (NotDetected)
== END 2020-11-16 19:00 | disposition short-term general hospital (02) ==
LOC: BURERS 15:05
DX: S12.000A Unspecified displaced fracture of first cervical vertebra, initial encounter for closed fracture (principal); Z20.822 Contact with and (suspected) exposure to COVID-19; Z87.891 Personal history of nicotine dependence; Z79.82 Long term (current) use of aspirin; Z79.899 Other long term (current) drug therapy; W19.XXXA Unspecified fall, initial encounter
CPT/HCPCS: 36415; 70450; 72125; 80053; 85025; 85610; 96374; 96376; J2270; U0002

== ENCOUNTER 2020-11-20 18:00 | Inpatient (IN) | payer MEDICARE ==
[2020-11-20 20:54] VITALS: BMI 24.0
[2020-11-20] MEDS ORDERED: HYDROcodone/Acetaminophen 10/325 mg Tablet PO PRN ×2 (22:56)
[2020-11-20] MEDS ORDERED: Calcium Carbonate 500 MG ChewTAB PO PRN (22:56)
[2020-11-21] MEDS: Acetaminophen 325 MG TAB PO SCH ×4 (00:05→17:11)
[2020-11-21] MEDS: HYDROcodone/Acetaminophen 5/325 mg Tablet PO PRN ×2 (07:50→15:36)
[2020-11-21] MEDS: Polyethylene Glycol 3350 17 GM Packet PO SCH (08:22)
[2020-11-21] MEDS: DULoxetine 30 MG CAP PO SCH (08:23)
[2020-11-21] MEDS: Multivitamin W/ Minerals 1 TAB PO SCH (08:23)
[2020-11-21] MEDS: Hydrochlorothiazide 25 MG TAB PO SCH (08:23)
[2020-11-21] MEDS: Gabapentin 300 MG CAP PO SCH ×2 (08:23→21:13)
[2020-11-21] MEDS: Bupropion 150 MG SR TAB PO SCH (08:24)
[2020-11-21] MEDS: Trospium 20 MG TAB PO SCH ×2 (08:25→21:13)
[2020-11-21] MEDS: Baclofen 10 MG TAB PO SCH ×2 (08:25→21:14)
[2020-11-21] MEDS: Senokot S 8.6-50 MG TAB PO SCH ×2 (08:25→21:14)
[2020-11-21] MEDS: Aspirin 81 mg Enteric Coated Tablet PO SCH (08:26)
[2020-11-21] MEDS: Calcium Carbonate 600 MG + Vit D TAB PO SCH ×2 (08:26→21:13)
[2020-11-21] MEDS: Vit A,C & E/Lutein/Minerals Tablet PO SCH (08:26)
[2020-11-21] MEDS: Famotidine 20 MG TAB PO SCH ×2 (08:27→21:14)
[2020-11-21] MEDS: Polyethylene Glycol OPTH DROP 15 ML BOT EA EYE SCH ×2 (08:28→21:12)
[2020-11-21] MEDS: Amlodipine 5 MG TAB PO SCH (08:29)
[2020-11-21] MEDS ORDERED: BIOTIN 2500 MCG PO SCH (09:00)
[2020-11-21] MEDS ORDERED: PHOSPHO PO SCH (09:00)
[2020-11-21] MEDS ORDERED: Aspirin 81 mg Enteric Coated Tablet PO SCH (09:00)
[2020-11-21] MEDS ORDERED: DHA PO SCH (09:00)
[2020-11-21] MEDS ORDERED: AST PO SCH (09:00)
[2020-11-21] MEDS ORDERED: KRILL PO SCH (09:00)
[2020-11-21] MEDS ORDERED: Calcium Carbonate 600 MG + Vit D TAB PO SCH (09:00)
[2020-11-21] MEDS ORDERED: LOTEPREDNOL ETABONATE EA EYE SCH (09:00)
[2020-11-21] MEDS ORDERED: EPA PO SCH (09:00)
[2020-11-21] MEDS ORDERED: [UNRECOGNIZED DRUG - OTHER] PO SCH (09:00)
[2020-11-21] MEDS: Meloxicam 7.5 MG TAB PO SCH (18:30)
[2020-11-21] MEDS: Latanoprost 0.005% Ophth Soln 2.5 ml Bottle L EYE SCH (21:10)
[2020-11-21] MEDS: FLUOROMETHOLONE 0.1% EA EAR SCH (21:11)
[2020-11-21] MEDS: Enoxaparin Sodium 40 MG/0.4 ML SYRINGE SC SCH (21:12)
[2020-11-21] MEDS: Rosuvastatin 10 MG TAB PO SCH (21:14)
[2020-11-21] MEDS: Melatonin 3 MG TAB PO SCH (21:15)
[2020-11-22] MEDS: Acetaminophen 325 MG TAB PO SCH ×4 (00:31→17:18)
[2020-11-22] MEDS: HYDROcodone/Acetaminophen 5/325 mg Tablet PO PRN ×2 (09:07→17:16)
[2020-11-22] MEDS: Fish Oil 1,000 MG CAP PO SCH (09:09)
[2020-11-22] MEDS: Hydrochlorothiazide 25 MG TAB PO SCH (09:10)
[2020-11-22] MEDS: Polyethylene Glycol 3350 17 GM Packet PO SCH (09:11)
[2020-11-22] MEDS: Vit A,C & E/Lutein/Minerals Tablet PO SCH (09:11)
[2020-11-22] MEDS: DULoxetine 30 MG CAP PO SCH (09:12)
[2020-11-22] MEDS: Bupropion 150 MG SR TAB PO SCH (09:12)
[2020-11-22] MEDS: Trospium 20 MG TAB PO SCH ×2 (09:13→20:43)
[2020-11-22] MEDS: Multivitamin W/ Minerals 1 TAB PO SCH (09:13)
[2020-11-22] MEDS: Baclofen 10 MG TAB PO SCH ×2 (09:13→20:43)
[2020-11-22] MEDS: Amlodipine 5 MG TAB PO SCH (09:15)
[2020-11-22] MEDS: Gabapentin 300 MG CAP PO SCH ×2 (09:17→20:44)
[2020-11-22] MEDS: Aspirin 81 mg Enteric Coated Tablet PO SCH (09:21)
[2020-11-22] MEDS: Calcium Carbonate 600 MG + Vit D TAB PO SCH ×2 (09:21→20:44)
[2020-11-22] MEDS: Meloxicam 7.5 MG TAB PO SCH (09:25)
[2020-11-22] MEDS: Senokot S 8.6-50 MG TAB PO SCH ×2 (09:26→20:44)
[2020-11-22] MEDS: Polyethylene Glycol OPTH DROP 15 ML BOT EA EYE SCH ×2 (09:26→20:42)
[2020-11-22] MEDS: Famotidine 20 MG TAB PO SCH ×2 (09:31→20:45)
[2020-11-22] MEDS: Latanoprost 0.005% Ophth Soln 2.5 ml Bottle L EYE SCH (20:41)
[2020-11-22] MEDS: Enoxaparin Sodium 40 MG/0.4 ML SYRINGE SC SCH (20:42)
[2020-11-22] MEDS: FLUOROMETHOLONE 0.1% EA EAR SCH (20:42)
[2020-11-22] MEDS: Melatonin 3 MG TAB PO SCH (20:43)
[2020-11-22] MEDS: Rosuvastatin 10 MG TAB PO SCH (20:43)
[2020-11-23] MEDS: Acetaminophen 325 MG TAB PO SCH ×5 (00:16→23:32)
[2020-11-23] MEDS: Polyethylene Glycol OPTH DROP 15 ML BOT EA EYE SCH ×2 (09:16→20:20)
[2020-11-23] MEDS: Gabapentin 300 MG CAP PO SCH ×2 (09:21→20:17)
[2020-11-23] MEDS: DULoxetine 30 MG CAP PO SCH (09:21)
[2020-11-23] MEDS: Bupropion 150 MG SR TAB PO SCH (09:22)
[2020-11-23] MEDS: Senokot S 8.6-50 MG TAB PO SCH ×2 (09:23→20:16)
[2020-11-23] MEDS: Baclofen 10 MG TAB PO SCH ×2 (09:23→20:18)
[2020-11-23] MEDS: Multivitamin W/ Minerals 1 TAB PO SCH (09:23)
[2020-11-23] MEDS: Calcium Carbonate 600 MG + Vit D TAB PO SCH ×2 (09:25→20:17)
[2020-11-23] MEDS: Amlodipine 5 MG TAB PO SCH (09:25)
[2020-11-23] MEDS: Vit A,C & E/Lutein/Minerals Tablet PO SCH (09:25)
[2020-11-23] MEDS: Fish Oil 1,000 MG CAP PO SCH (09:25)
[2020-11-23] MEDS: Famotidine 20 MG TAB PO SCH ×2 (09:26→20:17)
[2020-11-23] MEDS: Trospium 20 MG TAB PO SCH ×2 (09:27→22:03)
[2020-11-23] MEDS: Meloxicam 7.5 MG TAB PO SCH (09:27)
[2020-11-23] MEDS: Hydrochlorothiazide 25 MG TAB PO SCH (09:27)
[2020-11-23] MEDS: Aspirin 81 mg Enteric Coated Tablet PO SCH (09:28)
[2020-11-23] MEDS: Polyethylene Glycol 3350 17 GM Packet PO SCH (09:28)
[2020-11-23] MEDS: HYDROcodone/Acetaminophen 5/325 mg Tablet PO PRN ×2 (11:41→19:12)
[2020-11-23 12:01] LABS: SARS-CoV-2 PCR by NAA Not Detected (NotDetected)
[2020-11-23] MEDS: Enoxaparin Sodium 40 MG/0.4 ML SYRINGE SC SCH (20:16)
[2020-11-23] MEDS: Rosuvastatin 10 MG TAB PO SCH (20:17)
[2020-11-23] MEDS: Melatonin 3 MG TAB PO SCH (20:17)
[2020-11-23] MEDS: Latanoprost 0.005% Ophth Soln 2.5 ml Bottle L EYE SCH (20:19)
[2020-11-23] MEDS: FLUOROMETHOLONE 0.1% EA EAR SCH (20:21)
[2020-11-24] MEDS: Acetaminophen 325 MG TAB PO SCH ×4 (05:08→23:04)
[2020-11-24] MEDS: Polyethylene Glycol 3350 17 GM Packet PO SCH (09:25)
[2020-11-24] MEDS: Gabapentin 300 MG CAP PO SCH ×2 (09:26→21:04)
[2020-11-24] MEDS: DULoxetine 30 MG CAP PO SCH (09:27)
[2020-11-24] MEDS: Baclofen 10 MG TAB PO SCH ×2 (09:28→21:04)
[2020-11-24] MEDS: Amlodipine 5 MG TAB PO SCH (09:28)
[2020-11-24] MEDS: Calcium Carbonate 600 MG + Vit D TAB PO SCH ×2 (09:29→21:04)
[2020-11-24] MEDS: Hydrochlorothiazide 25 MG TAB PO SCH (09:30)
[2020-11-24] MEDS: Meloxicam 7.5 MG TAB PO SCH (09:31)
[2020-11-24] MEDS: Aspirin 81 mg Enteric Coated Tablet PO SCH (09:32)
[2020-11-24] MEDS: Trospium 20 MG TAB PO SCH ×2 (09:32→21:04)
[2020-11-24] MEDS: Vit A,C & E/Lutein/Minerals Tablet PO SCH (09:33)
[2020-11-24] MEDS: Multivitamin W/ Minerals 1 TAB PO SCH (09:33)
[2020-11-24] MEDS: Fish Oil 1,000 MG CAP PO SCH (09:33)
[2020-11-24] MEDS: Bupropion 150 MG SR TAB PO SCH (09:33)
[2020-11-24] MEDS: Famotidine 20 MG TAB PO SCH ×2 (09:33→21:04)
[2020-11-24] MEDS: Senokot S 8.6-50 MG TAB PO SCH ×2 (09:35→21:04)
[2020-11-24] MEDS: Polyethylene Glycol OPTH DROP 15 ML BOT EA EYE SCH ×2 (09:35→21:11)
[2020-11-24] MEDS: Enoxaparin Sodium 40 MG/0.4 ML SYRINGE SC SCH (21:03)
[2020-11-24] MEDS: Melatonin 3 MG TAB PO SCH (21:04)
[2020-11-24] MEDS: Rosuvastatin 10 MG TAB PO SCH (21:04)
[2020-11-24] MEDS: Latanoprost 0.005% Ophth Soln 2.5 ml Bottle L EYE SCH (21:11)
[2020-11-24] MEDS: FLUOROMETHOLONE 0.1% EA EAR SCH (21:17)
[2020-11-24] MEDS: HYDROcodone/Acetaminophen 5/325 mg Tablet PO PRN (23:07)
[2020-11-25] MEDS: Acetaminophen 325 MG TAB PO SCH ×4 (07:21→23:46)
[2020-11-25] MEDS: Polyethylene Glycol 3350 17 GM Packet PO SCH (09:28)
[2020-11-25] MEDS: DULoxetine 30 MG CAP PO SCH (09:29)
[2020-11-25] MEDS: Gabapentin 300 MG CAP PO SCH ×2 (09:29→21:00)
[2020-11-25] MEDS: Bupropion 150 MG SR TAB PO SCH (09:31)
[2020-11-25] MEDS: Trospium 20 MG TAB PO SCH ×2 (09:31→20:59)
[2020-11-25] MEDS: Hydrochlorothiazide 25 MG TAB PO SCH (09:32)
[2020-11-25] MEDS: Multivitamin W/ Minerals 1 TAB PO SCH (09:33)
[2020-11-25] MEDS: Vit A,C & E/Lutein/Minerals Tablet PO SCH (09:33)
[2020-11-25] MEDS: Aspirin 81 mg Enteric Coated Tablet PO SCH (09:33)
[2020-11-25] MEDS: Calcium Carbonate 600 MG + Vit D TAB PO SCH ×2 (09:33→21:14)
[2020-11-25] MEDS: Amlodipine 5 MG TAB PO SCH (09:34)
[2020-11-25] MEDS: Meloxicam 7.5 MG TAB PO SCH (09:35)
[2020-11-25] MEDS: Fish Oil 1,000 MG CAP PO SCH (09:35)
[2020-11-25] MEDS: Baclofen 10 MG TAB PO SCH ×3 (09:39→21:03)
[2020-11-25] MEDS: Famotidine 20 MG TAB PO SCH ×2 (09:39→21:14)
[2020-11-25] MEDS: Polyethylene Glycol OPTH DROP 15 ML BOT EA EYE SCH ×3 (09:40→21:15)
[2020-11-25] MEDS: Senokot S 8.6-50 MG TAB PO SCH ×2 (09:40→20:59)
[2020-11-25] MEDS: HYDROcodone/Acetaminophen 5/325 mg Tablet PO PRN ×2 (12:31→18:35)
[2020-11-25] MEDS: Melatonin 3 MG TAB PO SCH (20:59)
[2020-11-25] MEDS: Rosuvastatin 10 MG TAB PO SCH (20:59)
[2020-11-25] MEDS: Latanoprost 0.005% Ophth Soln 2.5 ml Bottle L EYE SCH (21:01)
[2020-11-25] MEDS: FLUOROMETHOLONE 0.1% EA EAR SCH (21:01)
[2020-11-25] MEDS: Enoxaparin Sodium 40 MG/0.4 ML SYRINGE SC SCH (21:14)
[2020-11-26] MEDS: Acetaminophen 325 MG TAB PO SCH ×3 (05:33→17:34)
[2020-11-26] MEDS: HYDROcodone/Acetaminophen 5/325 mg Tablet PO PRN ×2 (07:43→14:26)
[2020-11-26] MEDS: Polyethylene Glycol OPTH DROP 15 ML BOT EA EYE SCH ×2 (09:53→20:43)
[2020-11-26] MEDS: Senokot S 8.6-50 MG TAB PO SCH ×2 (09:54→20:36)
[2020-11-26] MEDS: Polyethylene Glycol 3350 17 GM Packet PO SCH (09:54)
[2020-11-26] MEDS: DULoxetine 30 MG CAP PO SCH (09:55)
[2020-11-26] MEDS: Gabapentin 300 MG CAP PO SCH ×2 (09:56→20:37)
[2020-11-26] MEDS: Bupropion 150 MG SR TAB PO SCH (09:56)
[2020-11-26] MEDS: Trospium 20 MG TAB PO SCH ×2 (09:57→20:37)
[2020-11-26] MEDS: Vit A,C & E/Lutein/Minerals Tablet PO SCH (09:57)
[2020-11-26] MEDS: Famotidine 20 MG TAB PO SCH ×2 (09:58→20:39)
[2020-11-26] MEDS: Aspirin 81 mg Enteric Coated Tablet PO SCH (09:58)
[2020-11-26] MEDS: Amlodipine 5 MG TAB PO SCH (09:58)
[2020-11-26] MEDS: Fish Oil 1,000 MG CAP PO SCH (09:59)
[2020-11-26] MEDS: Multivitamin W/ Minerals 1 TAB PO SCH (10:00)
[2020-11-26] MEDS: Meloxicam 7.5 MG TAB PO SCH (10:00)
[2020-11-26] MEDS: Calcium Carbonate 600 MG + Vit D TAB PO SCH ×2 (10:00→20:39)
[2020-11-26] MEDS: Baclofen 10 MG TAB PO SCH ×2 (10:01→20:39)
[2020-11-26] MEDS: Hydrochlorothiazide 25 MG TAB PO SCH (10:01)
[2020-11-26] MEDS: Enoxaparin Sodium 40 MG/0.4 ML SYRINGE SC SCH (20:33)
[2020-11-26] MEDS: Rosuvastatin 10 MG TAB PO SCH (20:36)
[2020-11-26] MEDS: Melatonin 3 MG TAB PO SCH (20:39)
[2020-11-26] MEDS: Latanoprost 0.005% Ophth Soln 2.5 ml Bottle L EYE SCH (20:46)
[2020-11-26] MEDS: FLUOROMETHOLONE 0.1% EA EAR SCH (20:47)
[2020-11-27] MEDS: Acetaminophen 325 MG TAB PO SCH ×5 (00:03→23:06)
[2020-11-27] MEDS: HYDROcodone/Acetaminophen 5/325 mg Tablet PO PRN ×2 (05:55→14:30)
[2020-11-27] MEDS: Gabapentin 300 MG CAP PO SCH ×2 (09:51→20:59)
[2020-11-27] MEDS: Multivitamin W/ Minerals 1 TAB PO SCH (09:51)
[2020-11-27] MEDS: Trospium 20 MG TAB PO SCH ×2 (09:52→20:58)
[2020-11-27] MEDS: Senokot S 8.6-50 MG TAB PO SCH ×2 (09:52→20:59)
[2020-11-27] MEDS: Bupropion 150 MG SR TAB PO SCH (09:53)
[2020-11-27] MEDS: Vit A,C & E/Lutein/Minerals Tablet PO SCH (09:53)
[2020-11-27] MEDS: Famotidine 20 MG TAB PO SCH ×2 (09:54→20:58)
[2020-11-27] MEDS: Amlodipine 5 MG TAB PO SCH (09:54)
[2020-11-27] MEDS: Meloxicam 7.5 MG TAB PO SCH (09:55)
[2020-11-27] MEDS: Hydrochlorothiazide 25 MG TAB PO SCH (09:56)
[2020-11-27] MEDS: Aspirin 81 mg Enteric Coated Tablet PO SCH (09:56)
[2020-11-27] MEDS: Calcium Carbonate 600 MG + Vit D TAB PO SCH ×2 (09:56→20:59)
[2020-11-27] MEDS: DULoxetine 30 MG CAP PO SCH (09:56)
[2020-11-27] MEDS: Baclofen 10 MG TAB PO SCH ×2 (09:57→20:59)
[2020-11-27] MEDS: Polyethylene Glycol 3350 17 GM Packet PO SCH (09:57)
[2020-11-27] MEDS: Fish Oil 1,000 MG CAP PO SCH (09:57)
[2020-11-27] MEDS: Polyethylene Glycol OPTH DROP 15 ML BOT EA EYE SCH ×2 (09:58→21:01)
[2020-11-27] MEDS: Rosuvastatin 10 MG TAB PO SCH (20:58)
[2020-11-27] MEDS: Melatonin 3 MG TAB PO SCH (20:58)
[2020-11-27] MEDS: FLUOROMETHOLONE 0.1% EA EAR SCH (21:01)
[2020-11-27] MEDS: Latanoprost 0.005% Ophth Soln 2.5 ml Bottle L EYE SCH (21:01)
[2020-11-27] MEDS: Enoxaparin Sodium 40 MG/0.4 ML SYRINGE SC SCH (21:01)
[2020-11-28] MEDS: Acetaminophen 325 MG TAB PO SCH ×3 (05:22→17:41)
[2020-11-28] MEDS: HYDROcodone/Acetaminophen 5/325 mg Tablet PO PRN ×2 (08:43→17:40)
[2020-11-28] MEDS: Polyethylene Glycol 3350 17 GM Packet PO SCH (08:43)
[2020-11-28] MEDS: DULoxetine 30 MG CAP PO SCH (08:44)
[2020-11-28] MEDS: Gabapentin 300 MG CAP PO SCH ×2 (08:45→20:34)
[2020-11-28] MEDS: Trospium 20 MG TAB PO SCH ×2 (08:45→20:33)
[2020-11-28] MEDS: Vit A,C & E/Lutein/Minerals Tablet PO SCH (08:45)
[2020-11-28] MEDS: Senokot S 8.6-50 MG TAB PO SCH ×2 (08:45→20:33)
[2020-11-28] MEDS: Aspirin 81 mg Enteric Coated Tablet PO SCH (08:45)
[2020-11-28] MEDS: Hydrochlorothiazide 25 MG TAB PO SCH (08:45)
[2020-11-28] MEDS: Multivitamin W/ Minerals 1 TAB PO SCH (08:46)
[2020-11-28] MEDS: Famotidine 20 MG TAB PO SCH ×2 (08:46→20:34)
[2020-11-28] MEDS: Bupropion 150 MG SR TAB PO SCH (08:46)
[2020-11-28] MEDS: Baclofen 10 MG TAB PO SCH ×2 (08:46→20:33)
[2020-11-28] MEDS: Calcium Carbonate 600 MG + Vit D TAB PO SCH ×2 (08:47→20:33)
[2020-11-28] MEDS: Amlodipine 5 MG TAB PO SCH (08:47)
[2020-11-28] MEDS: Meloxicam 7.5 MG TAB PO SCH (08:47)
[2020-11-28] MEDS: Fish Oil 1,000 MG CAP PO SCH (08:47)
[2020-11-28] MEDS: Polyethylene Glycol OPTH DROP 15 ML BOT EA EYE SCH ×2 (08:48→20:40)
[2020-11-28] MEDS: Melatonin 3 MG TAB PO SCH (20:33)
[2020-11-28] MEDS: Rosuvastatin 10 MG TAB PO SCH (20:33)
[2020-11-28] MEDS: Enoxaparin Sodium 40 MG/0.4 ML SYRINGE SC SCH (20:34)
[2020-11-28] MEDS: Latanoprost 0.005% Ophth Soln 2.5 ml Bottle L EYE SCH (20:37)
[2020-11-28] MEDS: FLUOROMETHOLONE 0.1% EA EAR SCH (20:40)
[2020-11-29] MEDS: Acetaminophen 325 MG TAB PO SCH ×3 (00:11→11:38)
[2020-11-29 04:54] VITALS: BP 167/88; TEMP 98.3
[2020-11-29] MEDS: HYDROcodone/Acetaminophen 5/325 mg Tablet PO PRN ×2 (08:09→14:50)
[2020-11-29] MEDS: Senokot S 8.6-50 MG TAB PO SCH (08:09)
[2020-11-29] MEDS: Polyethylene Glycol 3350 17 GM Packet PO SCH ×2 (08:11→08:21)
[2020-11-29] MEDS: Vit A,C & E/Lutein/Minerals Tablet PO SCH (08:11)
[2020-11-29] MEDS: Aspirin 81 mg Enteric Coated Tablet PO SCH (08:11)
[2020-11-29] MEDS: DULoxetine 30 MG CAP PO SCH (08:11)
[2020-11-29] MEDS: Trospium 20 MG TAB PO SCH (08:11)
[2020-11-29] MEDS: Amlodipine 5 MG TAB PO SCH (08:12)
[2020-11-29] MEDS: Multivitamin W/ Minerals 1 TAB PO SCH (08:12)
[2020-11-29] MEDS: Famotidine 20 MG TAB PO SCH (08:12)
[2020-11-29] MEDS: Gabapentin 300 MG CAP PO SCH (08:12)
[2020-11-29] MEDS: Bupropion 150 MG SR TAB PO SCH (08:12)
[2020-11-29] MEDS: Hydrochlorothiazide 25 MG TAB PO SCH (08:13)
[2020-11-29] MEDS: Meloxicam 7.5 MG TAB PO SCH (08:13)
[2020-11-29] MEDS: Calcium Carbonate 600 MG + Vit D TAB PO SCH (08:13)
[2020-11-29] MEDS: Baclofen 10 MG TAB PO SCH (08:14)
[2020-11-29] MEDS: Fish Oil 1,000 MG CAP PO SCH (08:15)
[2020-11-29] MEDS: Polyethylene Glycol OPTH DROP 15 ML BOT EA EYE SCH (08:40)
== END 2020-11-29 12:13 | disposition home or self-care (01) | DRG 561 ==
LOC: BURMED 18:00
PROVIDERS: ADMIT Family Medicine; ATTEND Family Medicine
DX: S12.000D Unspecified displaced fracture of first cervical vertebra, subsequent encounter for fracture with routine healing (principal); W19.XXXD Unspecified fall, subsequent encounter; I10 Essential (primary) hypertension; E78.5 Hyperlipidemia, unspecified; M19.90 Unspecified osteoarthritis, unspecified site; F32.9 Major depressive disorder, single episode, unspecified; G89.29 Other chronic pain; Z90.49 Acquired absence of other specified parts of digestive tract; Z90.710 Acquired absence of both cervix and uterus; Z87.891 Personal history of nicotine dependence
CPT/HCPCS: J1650; U0003; U0005

== ENCOUNTER 2020-12-18 11:49 | Outpatient (CLI) | payer MEDICARE | END 2020-12-18 11:50 | disposition home or self-care (01) | LOC: BURRAD 11:49 | PROVIDERS: ATTEND Neurological Surgery | DX: S12.9XXA Fracture of neck, unspecified, initial encounter (principal) | CPT/HCPCS: 72040 ==

== ENCOUNTER 2021-01-06 04:42 | Emergency (ER) | payer MEDICARE ==
[2021-01-06 05:22] LABS: #Basophils 0.1 thou/uL (0.0-0.2); #Eosinphils 0.3 thou/uL (0.0-0.7); #Lymphocytes 2.3 thou/uL (1.20-3.40); #Monocytes 0.5 thou/uL (0.11-0.59); #Neutrophils 2.5 thou/uL (1.40-6.50); %Basophils 1.6 % (0.0-1.0); %Lymphocytes 39.9 % (21.0-51.0); %Monocytes 9.6 % (0.0-10.0); %Neutrophils 43.9 % (42.0-75.0); Hemoglobin 12.6 g/dL (12.0-16.0); Mean Corpuscular HGB CONC 31.9 g/dL (32.0-36.0); Mean Corpuscular Hemoglobin 29.5 pg (27.0-31.0); Mean Corpuscular Volume 92.5 fL (78.0-98.0); Mean Platelet Volume 7.8 fL (7.4-10.4); Platelet Count 212 thou/uL (130-400); RBC Distribution Width 13.1 % (11.5-14.5); Red Blood Cell (RBC) Count 4.28 mill/uL (4.20-5.40); White Blood Cell (WBC) Count 5.7 thou/uL (4.8-10.8)
[2021-01-06 05:29] LABS: INR-International Normal Ratio 0.9; Prothrombin Time 12.5 sec (12.0-14.7)
[2021-01-06 05:37] LABS: ALT (SGPT) 24 U/L (8-55); AST (SGOT) 32 U/L (5-34); Albumin 3.9 g/dL (3.4-4.8); Alkaline Phosphatase 90 U/L (40-110); Anion Gap 14 mmol/L (10-20); BUN (Urea Nitrogen) 16 mg/dL (9.8-20.1); Bilirubin, Total 0.3 mg/dL (0.2-1.2); Calc. Creatinine Clearance 0 mL/min (70-130); Calcium 9.8 mg/dL (7.8-10.44); Carbon Dioxide 32 mmol/L (23-31); Chloride 102 mmol/L (98-107); Globulin 2.6 g/dL (2.4-3.5); Glucose 118 mg/dL (83-110); Potassium 4.6 mmol/L (3.5-5.1); Protein, Total 6.5 g/dL (5.8-8.1); Sodium 143 mmol/L (136-145)
== END 2021-01-06 06:59 | disposition home or self-care (01) ==
LOC: BURERS 04:42
DX: S00.81XA Abrasion of other part of head, initial encounter (principal); I10 Essential (primary) hypertension; E78.5 Hyperlipidemia, unspecified; Z87.891 Personal history of nicotine dependence; W19.XXXA Unspecified fall, initial encounter
CPT/HCPCS: 36415; 70450; 72125; 80053; 85025; 85610; 93005

== ENCOUNTER 2021-01-18 09:01 | Emergency (ER) | payer MEDICARE | END 2021-01-18 11:03 | disposition short-term general hospital (02) | LOC: BURERS 09:01 | DX: S14.121A Central cord syndrome at C1 level of cervical spinal cord, initial encounter (principal); S12.030A Displaced posterior arch fracture of first cervical vertebra, initial encounter for closed fracture; W19.XXXA Unspecified fall, initial encounter; I10 Essential (primary) hypertension; E78.5 Hyperlipidemia, unspecified; E78.00 Pure hypercholesterolemia, unspecified; M19.90 Unspecified osteoarthritis, unspecified site; E78.1 Pure hyperglyceridemia; Z87.891 Personal history of nicotine dependence | CPT/HCPCS: 72125 ==

== ENCOUNTER 2021-02-27 16:48 | Outpatient (CLI) | payer MEDICARE | END 2021-02-27 16:49 | disposition home or self-care (01) | LOC: BURRAD 16:48 | PROVIDERS: ATTEND Neurological Surgery | DX: M54.12 Radiculopathy, cervical region (principal) | CPT/HCPCS: 72050 ==